=== PATIENT | female | born 1960 | race Hispanic/Latino ===

== ENCOUNTER 2018-04-30 17:59 | Outpatient (CLI) | payer OTHER ==
--- NOTE | 2018-04-30 20:03 | RAD ---
TWO VIEWS OF CHEST: 04/30/18 COMPARISON: None. HISTORY: Fall last Saturday, left sided pain. FINDINGS: There is mild diffuse nonspecific increased interstitial density with no pneumothorax, pleural fluid, lobar consolidation, or alveolar edema. IMPRESSION: No radiographic evidence of acute cardiopulmonary disease. POS: LAYNE
--- NOTE | 2018-04-30 21:30 | RAD ---
RADIOGRAPH LEFT RIBS 3 VIEWS: 04/30/18 HISTORY: 57-year-old female with left sided chest pain after fall. FINDINGS: There is a moderately large focal osseous lucency defect involving the posterolateral aspect of the l eft 8th rib. Slightly distal to that, there is a linear lucency across the superior portion of the po sterolateral aspect of that same rib, suggestive of a fracture. IMPRESSION: 1. 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 2. Suspected nondisplaced pathologic or traumatic fracture adjacent to it. 3. Questionable similar such osteolytic lesion involving the posterior aspect of the contralater al right 8th rib. 4. Recommend chest CT for further evaluation. Code T POS: ANAMIKA
== END 2018-04-30 18:00 | disposition home or self-care (01) ==
LOC: MADRAD 17:59
DX: R07.9 Chest pain, unspecified (principal); M89.9 Disorder of bone, unspecified
CPT/HCPCS: 71046